=== PATIENT | female | born 1990 | race Caucasian/White ===

== ENCOUNTER 2018-06-19 06:00 | Inpatient (IN) ==
[2018-06-19] MEDS ORDERED: ceFAZolin 3,000 MG in SYRINGE 1 EACH IV ONE (07:22)
[2018-06-19] MEDS ORDERED: FAMOTIDINE 20 MG/2 ML VIAL IV ONE (07:22)
[2018-06-19] MEDS ORDERED: CITRIC ACID/SODIUM CITRATE 30 ML UDCUP PO ONE (07:22)
[2018-06-19] MEDS ORDERED: OXYTOCIN/LR 30 UNIT/1,000 ML BAG IV ONE (07:25)
[2018-06-19] MEDS ORDERED: OXYTOCIN 10 UNIT/ML VIAL IM ONE (07:25)
[2018-06-19] MEDS ORDERED: LACTATED RINGERS 1,000 ML IV ONE (07:25)
[2018-06-19] MEDS ORDERED: LACTATED RINGERS 1,000 ML IV SCH (07:30)
[2018-06-19 07:45] LABS: Basophils % 0.3 % (0.0-0.8); Eosinophils # 0.1 10*3/uL (0.0-0.87); Eosinophils % 0.8 % (0.00-10.9); Hematocrit 36.7 VOL% (35.7-47.0); Hemoglobin 11.9 GM/DL (12.0-16.0); Immature Granulocytes % 0.8 %; Lymphocytes # 2.9 10*3/uL (1.4-4.0); Lymphocytes % 21.8 % (21.3-54.2); Mean Corpuscular HGB Conc 32.4 GM/DL (32-36); Mean Corpuscular Hemoglobin 29 PG (27-34); Mean Platelet Volume 10.4 FL (9.6-12.0); Monocytes # 0.6 10*3/uL (0.11-0.8); Monocytes % 4.8 % (1.7-12.7); Neutrophils # 9.4 10*3/uL (1.4-7.4); Neutrophils % 71.5 % (38.7-73.9); Platelet Count 242 T/CUMM (130-400); Red Blood Count 4.08 MC/CUMM (3.8-5.5); Red Cell Distribution Width 13.3 % (9.3-17.3); White Blood Count 13.2 T/CUMM (4-12)
[2018-06-19] MEDS ORDERED: BUPIVACAINE 0.5% 50 ML VIAL ONE (08:01)
[2018-06-19 08:24] LABS: Alanine Aminotransferase 14 U/L (13-56); Albumin 2.8 G/DL (3.4-5.0); Alkaline Phosphatase 123 U/L (45-117); Aspartate Amino Transferase 14 U/L (0-37); Bilirubin,Total < 0.39 MG/DL (0.2-1.0); Blood Urea Nitrogen 10 MG/DL (7-18); Calcium 8.3 MG/DL (8.5-10.1); Glucose 80 MG/DL (74-106); Osmolality,Calculated 274.5 MOS/KG (273-304); Potassium 3.6 MMOL/L (3.5-5.1); Sodium 139 MMOL/L (136-145); Total Protein 6.6 G/DL (6.4-8.3)
[2018-06-19 09:31] LABS: Cord Arterial Blood HCO3 21.7 MMOL/L; Cord Venous Blood HCO3 25.1 MMOL/L; Cord Venous Blood PCO2 44.6 MMHG
[2018-06-19 09:32] LABS: Cord Venous Blood PO2 17.2 MMHG
[2018-06-19 09:36] LABS: Apearance,Urine CLEAR (Clear); Bacteria,Urine Occasional /HPF (Few); Bilirubin,Urine Negative (Negative); Blood, Urine Negative (Negative); Glucose,Urine (UA) Negative (Negative); Ketones,Urine Negative (Negative); Mucus,Urine Occasional /LPF (Occasional); Nitrite,Urine Negative (Negative); Protein,Urine Negative; RBC,Urine 1 /HPF (0-4); Squamous Epithelial Cell,Urine Occasional /HPF (0-10); Urine Color Yellow (Yellow); Urine Specific Gravity 1.018 (1.001-1.035); Urine Urobilinogen < 2.0 EU/DL (0.2-1.0); WBC,Urine <1 /HPF (0-6)
[2018-06-19 09:41] LABS: Barbiturates Screen,Urine Negative (Negative); Benzodiazepines Screen,Urine Negative (Negative); Cannabinoid Screen,Urine Negative (Negative); Opiate Screen,Urine Negative (Negative); Phencyclidine Screen,Urine Negative (Negative)
[2018-06-19] MEDS ORDERED: ACETAMINOPHEN 325 MG TABLET PO PRN (09:41)
[2018-06-19] MEDS ORDERED: ONDANSETRON 4 MG/2 ML VIAL IV PRN (09:41)
[2018-06-19] MEDS ORDERED: OXYTOCIN/LR 20 UNIT/1,000 ML BAG IV ONE (09:41)
[2018-06-19] MEDS ORDERED: RHO(D) IMMUNE GLOBULIN 300 MCG SYRINGE IM ONE (09:41)
[2018-06-19] MEDS ORDERED: MAGNESIUM HYDROXIDE SUSP 30 ML UDCUP PO PRN (09:41)
[2018-06-19] MEDS ORDERED: fentaNYL 100 MCG/2 ML VIAL ONE (10:13)
[2018-06-19] MEDS ORDERED: PHENYLEPHRINE 1 MG/10 ML SYRINGE IV ONE (10:14)
[2018-06-19] MEDS ORDERED: MORPHINE 10 MG/10 ML VIAL ONE (10:14)
[2018-06-19] MEDS ORDERED: BUPIVACAINE SPINAL 0.75% 2 ML AMP SPINAL ONE (10:15)
[2018-06-19 11:01] LABS: HIV Antigen/Antibody Result Nonreactive (Nonreactive)
[2018-06-19] MEDS ORDERED: HYDROmorphone 2 MG/1 ML VIAL IV PRN (11:41)
[2018-06-19] MEDS ORDERED: hydrOXYzine HCL 25 MG/1 ML VIAL IM PRN (11:41)
[2018-06-19] MEDS ORDERED: diphenhydrAMINE 50 MG/1 ML VIAL IV PRN (11:41)
[2018-06-19] MEDS ORDERED: SODIUM CHLORIDE 0.9% 100 ML IV ONE (11:51)
[2018-06-19] MEDS: LACTATED RINGERS 1,000 ML IV SCH (17:30)
[2018-06-19 19:22] LABS: Basophils % 0.2 % (0.0-0.8); Eosinophils # 0.1 10*3/uL (0.0-0.87); Eosinophils % 0.4 % (0.00-10.9); Hematocrit 33.7 VOL% (35.7-47.0); Immature Granulocytes % 0.5 %; Immature Granulocytes Absolute 0.07 #; Lymphocytes # 1.8 10*3/uL (1.4-4.0); Lymphocytes % 13.2 % (21.3-54.2); Mean Corpuscular HGB Conc 32.6 GM/DL (32-36); Mean Corpuscular Hemoglobin 29 PG (27-34); Mean Corpuscular Volume 88.7 FL (87-102); Mean Platelet Volume 9.8 FL (9.6-12.0); Monocytes # 0.7 10*3/uL (0.11-0.8); Monocytes % 4.9 % (1.7-12.7); Neutrophils # 10.8 10*3/uL (1.4-7.4); Neutrophils % 80.8 % (38.7-73.9); Platelet Count 190 T/CUMM (130-400); Red Cell Distribution Width 13.3 % (9.3-17.3); White Blood Count 13.4 T/CUMM (4-12)
[2018-06-19] MEDS: IBUPROFEN 800 MG TABLET PO PRN (21:47)
[2018-06-19] MEDS: DOCUSATE SODIUM 100 MG CAPSULE PO SCH (21:48)
[2018-06-20] MEDS: LACTATED RINGERS 1,000 ML IV SCH ×2 (02:11→04:51)
[2018-06-20] MEDS: SIMETHICONE CHEW 80 MG TABLET PO PRN (04:23)
[2018-06-20] MEDS: IBUPROFEN 800 MG TABLET PO PRN ×2 (04:57→15:09)
[2018-06-20 05:14] LABS: Basophils % 0.2 % (0.0-0.8); Eosinophils # 0.1 10*3/uL (0.0-0.87); Eosinophils % 0.9 % (0.00-10.9); Hematocrit 32.2 VOL% (35.7-47.0); Hemoglobin 10.7 GM/DL (12.0-16.0); Immature Granulocytes % 0.3 %; Immature Granulocytes Absolute 0.04 #; Lymphocytes # 2.2 10*3/uL (1.4-4.0); Lymphocytes % 18.7 % (21.3-54.2); Mean Corpuscular HGB Conc 33.2 GM/DL (32-36); Mean Corpuscular Hemoglobin 29 PG (27-34); Mean Corpuscular Volume 87.7 FL (87-102); Mean Platelet Volume 10.4 FL (9.6-12.0); Monocytes # 0.6 10*3/uL (0.11-0.8); Monocytes % 5.2 % (1.7-12.7); Neutrophils # 8.9 10*3/uL (1.4-7.4); Neutrophils % 74.7 % (38.7-73.9); Platelet Count 203 T/CUMM (130-400); Red Blood Count 3.67 MC/CUMM (3.8-5.5); Red Cell Distribution Width 13.3 % (9.3-17.3)
[2018-06-20] MEDS ORDERED: METOCLOPRAMIDE 10 MG/2 ML VIAL IV SCH (08:00)
[2018-06-20] MEDS: MULTIVITAMIN (PRENATAL) TABLET PO SCH (10:05)
[2018-06-20] MEDS: DOCUSATE SODIUM 100 MG CAPSULE PO SCH ×2 (10:05→21:53)
[2018-06-20] MEDS: MAGNESIUM HYDROXIDE SUSP 30 ML UDCUP PO SCH ×2 (10:44→21:53)
[2018-06-20] MEDS: METOCLOPRAMIDE 10 MG TABLET PO SCH ×2 (11:35→21:53)
[2018-06-21] MEDS: IBUPROFEN 800 MG TABLET PO PRN (01:19)
[2018-06-21] MEDS: METOCLOPRAMIDE 10 MG TABLET PO SCH (04:23)
[2018-06-21 07:56] VITALS: BP 114/77
[2018-06-21] MEDS ORDERED: BISACODYL 10 MG SUPP RECTAL ONE (08:29)
[2018-06-21] MEDS: SIMETHICONE CHEW 80 MG TABLET PO PRN (08:45)
[2018-06-21] MEDS: DOCUSATE SODIUM 100 MG CAPSULE PO SCH (08:45)
[2018-06-21] MEDS: MAGNESIUM HYDROXIDE SUSP 30 ML UDCUP PO SCH (08:46)
[2018-06-21] MEDS: MULTIVITAMIN (PRENATAL) TABLET PO SCH (08:46)
== END 2018-06-21 12:31 | disposition home or self-care (01) | DRG 540 ==
LOC: N.LD 06:33 → N.OB 14:19
PROVIDERS: ADMIT Obstetrics & Gynecology; ATTEND Obstetrics & Gynecology